=== PATIENT | male | born 1990 | race Caucasian/White ===

== ENCOUNTER 2018-04-19 01:02 | Outpatient (CLI) | payer MEDICAID | END 2018-04-19 01:03 | disposition critical access hospital (66) | LOC: EMS 01:02 | PROVIDERS: ATTEND Surgery | DX: R07.9 Chest pain, unspecified (principal); R06.02 Shortness of breath | CPT/HCPCS: A0425; A0427 ==

== ENCOUNTER 2018-04-19 01:18 | Emergency (ER) | payer MEDICAID ==
--- NOTE | 2018-04-19 01:32 | ED Physician Documentation ---
PD HPI CHEST PAIN - Stated complaint Stated Complaint: PALPITATIONS, SOA, CHEST WALL PAIN - Chief complaint Chief Complaint: Cardiac - History obtained from History obtained from: Patient, EMS - History of Present Illness Timing - onset: Today Timing - onset during: Light activity Timing - details: Gradual onset, Now resolved (has had some vague feeling of chest discomfort, tenderness and some pain with movment, and feeling like heart is skipping/palpitations at times during the day. Denies recent illness. States he is well hydrated. No alcohol nor recreational drugs.), Waxing and waning. No: Still present Quality: Pressure, Aching, Dull Location: Substernal, Left chest Radiation: No: Neck, Back Worsened by: Inspiration, Palpation. No: Exertion, Movement Associated symptoms: Palpitations. No: Shortness of air, Nausea, Feeling faint / dizzy, Cough Similar symptoms before: Has not had sx before Recently seen: Not recently seen Review of Systems Constitutional: denies: Fever, Chills Nose: denies: Rhinorrhea / runny nose, Congestion Throat: denies: Sore throat Cardiac: reports: Chest pain / pressure, Palpitations. denies: Pedal edema, Calf pain Respiratory: denies: Dyspnea, Cough, Wheezing GI: denies: Abdominal Pain, Nausea, Vomiting, Diarrhea Musculoskeletal: denies: Neck pain, Back pain Neurologic: denies: Generalized weakness, Focal weakness, Numbness, Near syncope PD PAST MEDICAL HISTORY - Past Medical History Past Medical History: No - Past Surgical History Past Surgical History: No - Present Medications Home Medications: Ambulatory Orders Medication Instructions Recorded Confirmed Citalopram [CeleXA] 10 mg PO ONCE 04/19/18 Naproxen 375 mg PO BID #20 tablet 04/19/18 - Allergies Allergies/Adverse Reactions: Allergies Allergy/AdvReac Type Severity Reaction Status Date / Time No Known Drug Allergies Allergy Verified 04/19/18 01:31 - Social History Does the pt smoke?: Yes Smoking Status: Current every day smoker Does the pt drink ETOH?: No Does the pt have substance abuse?: No - Immunizations Immunizations are current?: Yes - POLST Patient has POLST: No PD ED PE NORMAL - Vitals Vital signs reviewed: Yes - General General: Alert and oriented X 3, No acute distress, Well developed/nourished - HEENT HEENT: Moist mucous membranes, Pharynx benign - Neck Neck: Supple, no meningeal sign, No adenopathy - Cardiac Cardiac: RRR, No murmur - Respiratory Respiratory: Clear bilaterally - Abdomen Abdomen: Normal bowel sounds, Soft, Non tender, Non distended - Back Back: No CVA TTP - Derm Derm: Normal color, Warm and dry - Extremities Extremities: Normal ROM s pain, No edema, No calf tenderness / cord - Neuro Neuro: Alert and oriented X 3, No motor deficit, Normal speech - Psych Psych: Normal mood, Normal affect Results - Vitals Vitals: Vital Signs - 24 hr 04/19/18 04/19/18 04/19/18 01:23 01:31 02:30 Temperature 37 C Heart Rate 95 99 110 H Respiratory 16 14 20 Rate Blood Pressure 139/91 H 134/95 H 122/84 H O2 Saturation 99 97 100 04/19/18 03:35 Temperature Heart Rate 112 H Respiratory 19 Rate Blood Pressure 150/101 H O2 Saturation 100 Oxygen O2 Source Room air - EKG (time done) 01:23 Rate: Rate (enter#) (100) Rhythm: Sinus tachycardia [place]: Normal Intervals: Normal [place] QRS: Normal Ischemia: Normal ST segments, ST elevation c/w repol (anteriorly some ST up, which may be part of LVH pattern, or early repol, though not distinct upward sloping. Could also consider pericardial inflammation. Markers are negative and CXR is normal. ). No: ST elevation c/w ischemia, ST depression, T wave inversion - Labs Labs: Laboratory Tests 04/19/18 04/19/18 04/19/18 01:45 01:45 01:45 WBC 11.3 H RBC 4.69 L Hgb 14.0 Hct 40.9 L MCV 87.4 MCH 29.9 MCHC 34.2 RDW 13.3 Plt Count 227 MPV 8.6 Neut # (Auto) 6.2 Lymph # (Auto) 4.1 H [place] # (Auto) 0.9 Eos # (Auto) 0.1 Baso # (Auto) 0.1 Absolute Nucleated RBC 0.01 Nucleated RBC % 0.1 ESR Sodium 140 Potassium 3.5 Chloride 105 Carbon Dioxide 27 Anion Gap 8.0 BUN 10 Creatinine 0.5 L Estimated GFR (MDRD) 199 Glucose 118 H Calcium 9.6 Magnesium 2.5 Total Bilirubin 0.8 AST 119 H ALT 46 Alkaline Phosphatase 83 Troponin I < 0.04 B-Natriuretic Peptide Total Protein 7.9 Albumin 4.4 Globulin 3.5 Albumin/Globulin Ratio 1.3 Lipase 31 Urine Opiates Screen Ur Oxycodone Screen Urine Methadone Screen Ur Propoxyphene Screen Ur Barbiturates Screen Ur Tricyclics Screen Ur Phencyclidine Scrn Ur Amphetamine Screen U Methamphetamines Scrn U Benzodiazepines Scrn Urine Cocaine Screen U Cannabinoids Screen Ethyl Alcohol < 5.0 04/19/18 04/19/18 04/19/18 01:45 01:45 03:15 WBC RBC Hgb Hct MCV MCH MCHC RDW Plt Count MPV Neut # (Auto) Lymph # (Auto) [place] # (Auto) Eos # (Auto) Baso # (Auto) Absolute Nucleated RBC Nucleated RBC % ESR 11 Sodium Potassium Chloride Carbon Dioxide Anion Gap BUN Creatinine Estimated GFR (MDRD) Glucose Calcium Magnesium Total Bilirubin AST ALT Alkaline Phosphatase Troponin I B-Natriuretic Peptide 8 Total Protein Albumin Globulin Albumin/Globulin Ratio Lipase Urine Opiates Screen NEGATIVE Ur Oxycodone Screen NEGATIVE Urine Methadone Screen NEGATIVE Ur Propoxyphene Screen NEGATIVE Ur Barbiturates Screen NEGATIVE Ur Tricyclics Screen NEGATIVE Ur Phencyclidine Scrn NEGATIVE Ur Amphetamine Screen NEGATIVE U Methamphetamines Scrn NEGATIVE U Benzodiazepines Scrn NEGATIVE Urine Cocaine Screen NEGATIVE U Cannabinoids Screen NEGATIVE Ethyl Alcohol - Rads (name of study) CXR Radiology: Prelim report reviewed, EMP read contemporaneously (normal appearance), See rad report PD MEDICAL DECISION MAKING - ED course Complexity details: reviewed results, considered differential (complaint of palpitations mainly and appears okay here. Basic lab testing without problem. ), d/w patient Departure - Departure Disposition: 01 Home, Self Care Clinical Impression: Heart palpitations, Chest discomfort Condition: Stable Record reviewed to determine appropriate education?: Yes Instructions: ED Chest Pain Atypical Unkn Cause, ED Palpitations Prescriptions: Naproxen 375 mg PO BID #20 tablet Comments: Your basic blood tests and EKG are normal here. Palpitations are relatively common. Be sure to stay well-hydrated. Recheck if recurrent or further sympt oms or any associated with lightheadedness, shortness of breath, chest pain. There could potentially be some mild inflammation in the chest wall and so you could use some naproxen twice daily for the next 7-10 days. Discharge Date/Time: 04/19/18 03:39
[2018-04-19] MEDS ORDERED: KETOROLAC 15 MG/ML VIAL IVP STA (01:33)
[2018-04-19 01:51] LABS: BASOPHILS # (AUTO) 0.1 10^3/uL (0.0-0.1); BASOPHILS % (AUTO) 0.8 %; EOSINOPHILS # (AUTO) 0.1 10^3/uL (0.0-0.7); EOSINOPHILS % (AUTO) 0.9 %; LYMPHOCYTES # (AUTO) 4.1 10^3/uL (1.5-3.5); MEAN CORPUSCULAR HEMOGLOBIN 29.9 pg (27.0-31.0); MEAN CORPUSCULAR HGB CONC 34.2 g/dL (32.0-36.0); MEAN CORPUSCULAR VOLUME 87.4 fL (80.0-94.0); MEAN PLATELET VOLUME 8.6 fL (7.4-11.4); MONOCYTES # (AUTO) 0.9 10^3/uL (0.0-1.0); MONOCYTES % (AUTO) 7.7 %; NEUTROPHILS # (AUTO) 6.2 10^3/uL (1.5-6.6); NEUTROPHILS % (AUTO) 54.6 %; PLT - PLATELET COUNT 227 10^3/uL (130-450); RED BLOOD COUNT 4.69 10^6/uL (4.70-6.10); RED CELL DISTRIBUTION WIDTH 13.3 % (12.0-15.0); WHITE BLOOD COUNT 11.3 x10^3/uL (4.8-10.8)
--- NOTE | 2018-04-19 01:56 | XRAY Report ---
Reason: chest pain Procedure Date: 04/19/2018 Accession Number: [id number] / [id number] Procedure: XR - Chest 1 View X-Ray CPT Code: 40403 FULL RESULT: EXAM: CHEST RADIOGRAPHY EXAM DATE: 04/19/2018 01:43 AM. CLINICAL HISTORY: Chest pain. COMPARISON: None. TECHNIQUE: 1 view. FINDINGS: Lungs/Pleura: No focal opacities evident. No pleural effusion. No pneumothorax. Mediastinum: Within exam limitations, the cardiomediastinal contour is normal. Other: None. IMPRESSION: Normal single view chest. [facility]
[2018-04-19 02:03] LABS: ALBUMIN 4.4 g/dL (3.2-5.5); ALBUMIN/GLOBULIN RATIO 1.3 (1.0-2.2); ALKALINE PHOSPHATASE 83 IU/L (42-121); ALT ALANINE AMINOTRANSFERASE 46 IU/L (10-60); AST ASPARTATE AMINOTRANSFERASE 119 IU/L (10-42); BILIRUBIN,TOTAL 0.8 mg/dL (0.2-1.0); BUN - BLOOD UREA NITROGEN 10 mg/dL (6-20); CALCIUM 9.6 mg/dL (8.5-10.3); CARBON DIOXIDE - CO2 27 mmol/L (21-32); CHLORIDE 105 mmol/L (101-111); CREATININE 0.5 mg/dL (0.6-1.2); GFR - MDRD 199 (>89); GLUCOSE 118 mg/dL (70-100); LIPASE 31 U/L (22-51); MAGNESIUM 2.5 mg/dL (1.7-2.8); SODIUM 140 mmol/L (135-145); TOTAL PROTEIN 7.9 g/dL (6.7-8.2)
[2018-04-19 03:18] LABS: MUDS CUTOFF CONCENTRATIONS CUTOFF CONC BELOW:
[2018-04-19 03:37] VITALS: BP 150/101
[2018-04-19 03:41] LABS: AMPHETAMINE SCREEN,URINE NEGATIVE (NEGATIVE); BENZODIAZEPINES SCREEN, URINE NEGATIVE (NEGATIVE); COCAINE SCREEN URINE NEGATIVE (NEGATIVE); METHADONE SCREEN, URINE NEGATIVE (NEGATIVE); METHAMPHETAMINES SCREEN, URINE NEGATIVE (NEGATIVE); OPIATE SCREEN, URINE NEGATIVE (NEGATIVE); OXYCODONE SCREEN, URINE NEGATIVE (NEGATIVE); PROPOXYPHENE SCREEN, URINE NEGATIVE (NEGATIVE); TRICYCLIC ANTIDEPRESSANT,URINE NEGATIVE (NEGATIVE)
== END 2018-04-19 03:39 | disposition home or self-care (01) ==
LOC: ED 01:18
DX: R00.2 Palpitations (principal); R07.89 Other chest pain; F17.200 Nicotine dependence, unspecified, uncomplicated
CPT/HCPCS: 36415; 71045; 80053; 80306; 80320; 83690; 83735; 83880; 84484; 85025; 85651; 93005; 96374; 99284